=== PATIENT | female | born 1960 | race Caucasian/White ===

== ENCOUNTER 2016-07-03 14:29 | Emergency (ER) | payer MEDICAID ==
[~2016-07-03] VITALS: Ht 162.6 cm; Wt 53.9 kg
[2016-07-03 15:08] VITALS: BP 128/61
[2016-07-03] MEDS ORDERED: KETOROLAC 30 MG/1 ML ONE (15:49)
[2016-07-03] MEDS ORDERED: KETOROLAC 30 MG/1 ML IM ONE (16:00)
== END 2016-07-03 16:41 | disposition home or self-care (01) ==
LOC: ED 16:20
DX: M25.512 Pain in left shoulder (principal); G35 Multiple sclerosis
CPT/HCPCS: 96372; 99283; J1885

== ENCOUNTER 2018-02-05 09:00 | Emergency (ER) | payer MEDICAID ==
[~2018-02-05] VITALS: Ht 162.6 cm; Wt 52.0 kg
[2018-02-05 09:03] VITALS: BP 114/76
[2018-02-05] MEDS ORDERED: DIAZ2TAB3 PO (09:20)
[2018-02-05 09:26] LABS: MICROSCOPIC AUTO
== END 2018-02-05 10:02 | disposition home or self-care (01) ==
LOC: ED 09:15
DX: N30.00 Acute cystitis without hematuria (principal); Z87.891 Personal history of nicotine dependence
CPT/HCPCS: 81001; 99283

== ENCOUNTER → 2018-02-05 | Outpatient (CLI) | payer MEDICAID ==
[~2018-02-05] MED LIST: DIAZ2TAB3 PO; GADOBUTROL 7.5 MMOL/7.5 ML PFS ONE
== END | disposition home or self-care (01) ==
LOC: CFH 07:49
PROVIDERS: ATTEND Psychiatry & Neurology Neurology
DX: G93.89 Other specified disorders of brain (principal); G31.9 Degenerative disease of nervous system, unspecified; R90.82 White matter disease, unspecified
CPT/HCPCS: 70553; A9585